=== PATIENT | female | born 1955 | race Caucasian/White ===

== ENCOUNTER 2017-03-20 13:16 | Observation (INO) ==
[2017-03-20] MEDS ORDERED: ASPIRIN ONE (13:22)
[2017-03-20] MEDS ORDERED: ASPIRIN PO STA (13:24)
[2017-03-20 13:31] LABS: MANUAL DIFF NEEDED? NO
[2017-03-20 13:37] LABS: EOS# 0.26 X1000 (0.0-0.7); EOS% 2.9 % (0.0-10.0); HEMATOCRIT 45.5 % (37.0-47.0); HEMOGLOBIN 16.1 g/dL (12.0-16.0); IMM GRAN# 0.02 X1000 (0.0-0.04); IMM GRAN% 0.2 % (0.0-0.5); LYMPH# 3.71 X1000 (1.2-3.4); MCH 31.9 PG (27-31); MCHC 35.4 g/dL (33-37); MCV 90.3 FL (81-99); MONO# 0.71 X1000 (0.11-0.59); MPV 11.4 FL (7.4-10.4); NEUT% 45.9 % (42.2-75.2); PLT 296 X1000 (130-400); RBC 5.04 XMIL (4.2-5.4)
[2017-03-20 13:44] LABS: INR 0.94; PROTIME 9.8 Seconds (9.2-11.7); PTT 23.1 Seconds (22.0-36.0)
--- NOTE | 2017-03-20 13:46 | Diag Imaging Result Doc PS360 ---
EXAM: CHEST-PORTABLE INDICATION: CP TECHNIQUE: One view COMPARISON: 11/21/2016 FINDINGS: There is evidence of prior granulomatous disease, stable. The lungs are grossly clear, otherwise. There is no discrete pleural fluid collection or pneumothorax. There are stable CABG changes. The cardiomediastinal silhouette and central vasculature are grossly unremarkable, otherwise. IMPRESSION: No evidence of acute pathology by plain radiograph. Electronically signed by Hansel Malcolm 03/20/2017 1:44 PM
[2017-03-20] MEDS ORDERED: ZOFRAN ONE (13:57)
[2017-03-20 14:11] LABS: AGAP 18; ALBUMIN 4.5 g/dL (3.5-5.0); ALKALINE PHOSPHATASE 92 U/L (32-104); BUN 15 mg/dL (8-22); CALCIUM 9.3 mg/dL (8.8-10.2); CHLORIDE 99 mmol/L (98-107); CK PROFILE 60 U/L (24-173); COSMO 282; GOT 30 U/L (10-30); GPT 36 U/L (10-36); MAGNESIUM 2.1 mg/dL (1.5-2.7); POTASSIUM 4.6 mmol/L (3.5-5.1); SODIUM 139 mmol/L (136-145); TCO2 22 mmol/L (25-35); TOTAL BILIRUBIN 0.27 mg/dL (0.20-1.00); TOTAL PROTEIN 6.9 g/dL (6.3-8.3)
[2017-03-20] MEDS ORDERED: ZOFRAN IV ONE (14:30)
--- NOTE | 2017-03-20 14:32 | PROVIDER DOCUMENTATION ---
This chart was entered by Bob Chávez Scribe, acting as scribe for Aleida Celis MD. HPI-Chest Pain - General Chief Complaint: Chest Pain Stated Complaint: Near Syncope Time Seen by Provider: 03/20/17 13:17 Source: patient Allergies/Adverse Reactions: Patient Allergies Allergy/AdvReac Type Severity Reaction Status Date / Time Sulfa (Sulfonamide Allergy Mild ITCHING Verified 03/20/17 13:40 Antibiotics) adhesive Allergy RASH Verified 03/20/17 13:40 Home Medications: Home Medication List Medication Instructions Recorded Confirmed Last Taken Type Amlodipine Besylate [Norvasc] 5 mg PO DAILY #90 tablet 05/09/16 03/20/17 22:00 Rx Atorvastatin Calcium [Lipitor] 80 mg PO HS 05/09/16 03/20/17 03/19/17 22:00 History Carvedilol [Coreg] 12.5 mg PO BID 05/09/16 03/20/17 03/20/17 09:00 History Clopidogrel Bisulfate [Plavix] 75 mg PO DAILY 05/09/16 03/20/17 03/20/17 09:00 History LISINOpril [Prinivil] 20 mg PO HS 05/09/16 03/20/17 03/20/17 09:00 History Dapagliflozin Propanediol [Farxiga] 10 mg PO DAILY 11/21/16 03/20/17 03/20/17 09 :00 History Metformin E.r. [Glucophage Xr] 1,000 mg PO DAILY 11/21/16 03/20/17 03/20/17 09: 00 History Morris-3 Acid Ethyl Esters [Lovaza] 2 cap PO BID 11/21/16 03/20/17 03/20/17 09: 00 History Isosorbide Mononitrate E.r. [Imdur] 60 mg PO DAILY #30 11/22/16 03/20/17 09:00 Rx - History of Present Illness-CP Nature of Presenting Problem: 61 yo F presents to the ER via EMS with complaint of of wanting to pass out at work. PT all of a sudden felt bad and broke out in sweats and became SOB and had CP. PT was given nitro by EMS. Location: reports: substernal Chest Pain Radiation: reports: no radiation Severity in ED: mild Onset/Duration: 24 hours ago Timing: still present Associated Symptoms: reports: diaphoresis, weakness Nitro Today/Relief: provided by EMS Review of Systems - Adult - REVIEW OF SYSTEMS - ADULT Constitutional: denies: chills, fever Cardiovascular: reports: chest pain. denies: palpitations Respiratory: reports: shortness of breath. denies: cough Gastrointestinal: denies: abdominal pain, nausea, vomiting All Other Systems: Reviewed and Negative Past History - Adult - PAST MEDICAL HISTORY-ADULT Review of Records: reports: Old Records Reviewed, Nursing Assessment Review, Medications Reviewed, Social history reviewed & non-contributory. Cardiovascular: reports: CAD, HTN, hyperlipidemia Endocrine/Immune: reports: Diabetes Other Conditions: reports: other cancer - PRIOR SURGERIES/PROCEDURES Surgical/Procedure History: reports: CABG (2005), hysterectomy, other (3 cyst removal, bunion removal, skin cancer removal lower lid rt eye) - PRIOR HOSPITALIZATIONS Prior Hospitalizations: reports: for similar symptoms - IMMUNIZATION STATUS Childhood Immunizations: UTD Flu Vaccine: See Nurse Assessment - FAMILY HISTORY Family History: reviewed, not pertinent Physical Exam-General - PHYSICAL EXAM-ADULT Initial Vital Signs Reviewed: Yes - CONSTITUTIONAL General Appearance: appears well, alert, no apparent distress - RESPIRATORY Respiratory: chest non-tender, lungs clear, normal breath sounds - CARDIOVASCULAR Cardiovascular: normal peripheral pulses, regular rate, rhythm - GASTROINTESTINAL (ABDOMEN) Abdominal Exam: normal bowel sounds, non tender, soft - MUSCULOSKELETAL Extremity: normal range of motion, non-tender, normal gait - SKIN Integumentary: normal color, normal turgor, warm/dry Progress - PLAN OF CARE/RESULTS Progress/Plan/Lab Results: Vital Signs - 8 hr 03/20/17 13:23 03/20/17 13:49 Temperature 97.6 F Pulse Rate 66 65 Respiratory Rate 18 11 L Blood Pressure 95/70 93/59 O2 Sat by Pulse Oximetry 97 99 Laboratory Results - last 24 hr 03/20/17 03/20/17 03/20/17 13:10 13:10 13:10 WBC 8.84 RBC 5.04 Hgb 16.1 H Hct 45.5 MCV 90.3 MCH 31.9 H MCHC 35.4 RDW Std Deviation 12.0 Plt Count 296 MPV 11.4 H Immature Gran % (Auto) 0.2 Neut % (Auto) 45.9 Lymph % (Auto) 42.0 Riley % (Auto) 8.0 Eos % (Auto) 2.9 Baso % (Auto) 1.0 H Immature Gran # (Auto) 0.02 Neut # (Auto) 4.05 Lymph # (Auto) 3.71 H Riley # (Auto) 0.71 H Eos # (Auto) 0.26 Baso # (Auto) 0.09 PT INR PTT (Actin FS) Sodium 139 Potassium 4.6 Chloride 99 Carbon Dioxide 22 L Anion Gap 18 BUN 15 Creatinine 0.7 Estimated GFR/1.73 m2 > 60 BUN/Creatinine Ratio 21 Glucose 161 H Calculated Osmolality 282 Calcium 9.3 Magnesium 2.1 Total Bilirubin 0.27 AST 30 ALT 36 Alkaline Phosphatase 92 Creatine Kinase 60 Troponin T [id number] Pept 251 H Total Protein 6.9 Albumin 4.5 Globulin 2.4 Albumin/Globulin Ratio 1.9 03/20/17 03/20/17 13:10 13:10 WBC RBC Hgb Hct MCV MCH MCHC RDW Std Deviation Plt Count MPV Immature Gran % (Auto) Neut % (Auto) Lymph % (Auto) Riley % (Auto) Eos % (Auto) Baso % (Auto) Immature Gran # (Auto) Neut # (Auto) Lymph # (Auto) Riley # (Auto) Eos # (Auto) Baso # (Auto) PT 9.8 INR 0.94 PTT (Actin FS) 23.1 Sodium Potassium Chloride Carbon Dioxide Anion Gap BUN Creatinine Estimated GFR/1.73 m2 BUN/Creatinine Ratio Glucose Calculated Osmolality Calcium Magnesium Total Bilirubin AST ALT Alkaline Phosphatase Creatine Kinase Troponin T < 0.010 Wnf-[id number]-Qayqxzanjci Pept Total Protein Albumin Globulin Albumin/Globulin Ratio Orders Category Date Time Status Cardiac Monitoring DIRECTED Care 03/20/17 13:24 Active Saline Loc NOW Care 03/20/17 13:24 Active CHEST-PORTABLE [RAD] Stat Exams 03/20/17 13:24 Completed CBC WITH ELECTRONIC DIFF [HEME] Stat Lab 03/20/17 13:10 Completed CK PROFILE [SP CHEM] Stat Lab 03/20/17 13:10 Completed COMPREHENSIVE METABOLIC PANEL [CHEM] Stat Lab 03/20/17 13:10 Completed MAGNESIUM [CHEM] Stat Lab 03/20/17 13:10 Completed PRO B-NATRIURETIC PEPTIDE Stat Lab 03/20/17 13:10 Completed PROTIME WITH INR [COAG] Stat Lab 03/20/17 13:10 Completed PTT [COAG] Stat Lab 03/20/17 13:10 Completed TROPONIN T Stat Lab 03/20/17 13:10 Completed Aspirin Med 03/20/17 13:22 Discontinued 325 mg .ROUTE .STK-MED ONE Aspirin Med 03/20/17 13:24 Discontinued 325 mg PO STAT STA Ondansetron [Zofran] Med 03/20/17 13:57 Discontinued 4 mg .ROUTE .STK-MED ONE Ondansetron [Zofran] Med 03/20/17 14:30 Discontinued 4 mg IV NOW ONE Result Diagrams: 03/20/17 13:10 03/20/17 13:10 - EKG 1 Time of EKG reading by physician:: 13:54 EKG Read and Signed by:: Aleida Celis EKG Interpretation (*Must complete 3 of following elements*): Abnormal Rate: 69 Rhythm: NSR [place]: normal [place] Interval: normal ST Wave: normal Prior EKG Comparison: unchanged from prior Comments: non-specific AVF - XRAY 1 XRAY Study: Chest Impression: See EMR Report - CONSULTS/PCP/HOSPITALIST Notification #1 *Consult/PCP/Hospitalist*: Dr Daniel Time Discussed: 14:32 Consult Disposition: Admit Departure - Departure Date of Disposition Decision: 03/20/17 Time of Disposition Decision: 14:32 DIAGNOSIS: Unstable angina, Chest pain, rule out acute myocardial infarction Disposition: ADMITTED INPATIENT 09 Certified Medical Emergency: Emergent Condition: Fair Referrals and Follow-Ups: Josafat Hamlin DO [Primary Care Provider] - - Critical Care Note This patient required my direct & personal management of CC.: No This chart was documented by the indicated scribe, (Bob Chávez Scribe) and accurately reflects the services I performed and decisions made by me, Aleida Celis MD, as attested by the provider's signature.
[2017-03-20] MEDS ORDERED: TYLENOL PO PRN ×2 (15:16→21:13)
[2017-03-20] MEDS ORDERED: ZOFRAN IV PRN ×2 (15:16→21:13)
--- NOTE | 2017-03-20 15:47 | EKG Report ---
Test Performed on : 03/20/2017 1:52:41 PM Test Reason : CP Blood Pressure : / mmHG Vent. Rate : 067 BPM Atrial Rate : 067 BPM P-R Int : 148 ms QRS Dur : 090 ms QT Int : 470 ms P-R-T Axes : -15 076 086 degrees QTc Int : 496 ms Normal sinus rhythm. Prolonged QT Abnormal ECG When compared with ECG of 21-NOV-2016 11:19, No significant change was found Unconfirmed Result
--- NOTE | 2017-03-20 15:47 | EKG Report ---
Test Performed on : 03/20/2017 1:18:56 PM Test Reason : chest pain Blood Pressure : / mmHG Vent. Rate : 069 BPM Atrial Rate : 069 BPM P-R Int : 144 ms QRS Dur : 088 ms QT Int : 470 ms P-R-T Axes : -17 074 077 degrees QTc Int : 503 ms Normal sinus rhythm. Prolonged QT Abnormal ECG No previous ECGs available Unconfirmed Result
[2017-03-20] MEDS ORDERED: HEPARIN 25,000 UNITS/D5W 25,000 UNIT/250 ML IV.SOLN IV SCH ×2 (16:00→23:45)
--- NOTE | 2017-03-20 16:22 | HISTORY AND PHYSICAL ---
CHIEF COMPLAINT: Dizziness and substernal chest pain. HISTORY OF PRESENT ILLNESS: 61-year-old female with a past medical history of coronary artery disease status post CABG, hypertension, diabetes, hyperlipidemia, degenerative joint disease and depression came to the emergency department with the chief complaint of dizziness, nausea and chest pain. As per the patient everything started 15 minutes before lunch, when she presented with severe dizziness, sweating, fever and severe dizziness and nausea. 50 minutes after that she started presenting pressure like chest pain, nonradiated, 6 to 8/10. EMS saw this patient and they use nitroglycerine and after the treatment the chest pain went away. At the moment of my physical this patient was not on chest pain, vital signs are stable with nonspecific ST changes in the EKG and troponins negative so far. Cardiology Department has been consulted. PAST MEDICAL HISTORY: Coronary artery disease, systemic hypertension, type 2 diabetes, hyperlipidemia, osteoarthritis and depression. PAST SURGICAL HISTORY: Status post CABG with saphenous vein graft to obtuse marginal. FAMILY HISTORY: Positive for coronary artery disease and CT in both of her parents and 2 brothers. SOCIAL HISTORY: She is . Currently she smokes 1 pack of cigarettes daily for the past 18 years. She denies alcohol or drugs. ALLERGIES: As per reports she has been allergic to adhesives and sulfa medication. HOME MEDICATIONS: She was discharged in November of this year with the following medications, and actually this is the medication that she is that she is on at this moment. Lipitor 80. Plavix 75. Coreg 12.5 b.i.d. Lisinopril 20 daily. Farxiga 10 daily. Metformin 1 g daily. Lovaza 2 g b.i.d. Norvasc 5 mg p.o. daily. Imdur was increased to 60 p.o. daily. Vital signs: Pulse 65, respiratory rate 11, blood pressure 93/59, oxygen saturation 99 on 2 L of nasal cannula. HEENT: Head normocephalic. No trauma. PERRLA. Neck: Supple. No JVD. No masses. Central trachea. Chest: Clear to auscultation. No wheezing. No rales. Cardiovascular: RRR. No murmurs. Abdomen: Soft, nontender, nondistended. No hepatosplenomegaly. Extremities: No edema. No clubbing. No cyanosis. Neurological: The patient is alert and oriented x3. No focal neurological deficits. LABORATORY: WBC 8.8, hemoglobin 16.1, hematocrit 45.5, platelets 296,000. Sodium 139, potassium 4.6, chloride 99, bicarbonate 22, BUN 15, creatinine 0.7, glucose 161, calcium 9.3. Troponin less than 0.010. ProBNP 251. REVIEW OF SYSTEMS: All the 14 points of review of systems were reviewed, and all of them negative except as per HPI. ASSESSMENT AND PLAN: 1. Chest pain, this patient has been having this kind of chest pain before. In November 2016 this patient had a myocardial perfusion scan/stress test done that showed normal myocardial function and ventricular ejection fraction of 69%. Wall motion was normal. But given her past medical history, current history of smoking, we will keep this patient in the CIC unit and we will consult Cardiology Department for evaluation. I will also put this patient on a liquid diet and I will wait for recommendations of Cardiology Department. 2. Hypertension. Actually at this moment the systolic blood pressure is around 90. Blood pressure medication has been held. 3. Type 2 diabetes. I will do pattern of blood sugar and sliding scale insulin for now. 4. Tobacco abuse. This patient has been highly advised against tobacco abuse. I will continue with daily cessation education. 5. History of coronary artery disease status post coronary artery bypass graft. Aware. 6. Depression. Will monitor. cc: Zenon Levin MD MTDD
[2017-03-20 16:57] LABS: URINE CULTURE NEEDED? NO; URINE MICRO REVIEW NEEDED? NO; URINE SOURCE CATH
[2017-03-20 17:01] LABS: BILIRUBIN URINE NEGATIVE (NEGATIVE); BLOOD URINE NEGATIVE (NEGATIVE); COLOR YELLOW; GLUCOSE URINE >1000 mg/dL (NEGATIVE); LEUKOCYTES URINE NEGATIVE (NEGATIVE); NITRITE URINE NEGATIVE (NEGATIVE); PROTEIN URINE NEGATIVE (NEGATIVE); SP GRAVITY URINE 1.025; TURBIDITY URINE CLEAR (CLEAR); UR EPITHELIAL CELLS <10 /HPF (<10); URINE BACTERIA NEGATIVE /HPF; URINE RBC <10 /HPF (<10); URINE WBC <10 /HPF (<10); UROBILINOGEN URINE NORMAL (NORMAL)
[2017-03-20] MEDS ORDERED: HEPARIN IV ONE ×2 (17:16→23:39)
[2017-03-20] MEDS: LIPITOR PO SCH (20:30)
[2017-03-20] MEDS: COREG PO SCH (20:31)
[2017-03-20] MEDS ORDERED: HEPARIN SUBQ SCH (21:00)
[2017-03-20] MEDS ORDERED: KLOR-CON PO PRN ×3 (21:13)
[2017-03-20] MEDS ORDERED: NITROGLYCERIN SL PRN (21:13)
[2017-03-20] MEDS ORDERED: DULCOLAX PR PRN (21:13)
[2017-03-20] MEDS ORDERED: MAGNESIUM SULFATE 2 GM in STERILE WATER INJ. 50 ML IV PRN ×4 (21:13)
[2017-03-20] MEDS ORDERED: MILK OF MAGNESIA PO PRN (21:13)
[2017-03-20] MEDS ORDERED: CEPACOL SORE THROAT LOZENGE MT PRN (21:13)
[2017-03-20] MEDS ORDERED: RESTORIL PO PRN (21:13)
[2017-03-20] MEDS ORDERED: MAGNESIUM SULFATE 3 GM in NS 100 ML IV PRN (21:13)
[2017-03-20] MEDS ORDERED: PERCOCET-5 PO PRN (21:13)
[2017-03-20] MEDS: XANAX PO PRN (22:07)
--- NOTE | 2017-03-21 04:45 | CONSULTATION ---
DATE OF CONSULTATION: 03/20/2017 CHIEF COMPLAINT: Chest pain. REQUESTING: Hospitalist Service. HISTORY: Ms. Ferrer is a 61-year-old female who is known to Dr. Zeyad Cornejo. 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 Then she felt lightheaded. She started to sweat. She notified her coworkers than something was not right and within 20 minutes they called 911 and they brought her to the hospital. In the ambulance as she was riding, she started to feel pain in the left anterior chest, sharp, of mild severity, associated with some shortness of breath. Upon arrival, they did an EKG that showed similar to previous EKGs from November of 2016. They have admitted her to the hospital for further testing. They have done a total of 3 EKGs and all of them look about the same. She has had at least one troponin level which is negative. She says that compared to the episode of chest pain that she had back in November, this one was more localized to the left anterior chest. The previous one was in the center of the chest and more severe. She is at this time not having anymore pain. I am seeing her at 5:45 p.m. EKG has just been done and it shows a similar pattern which is sinus bradycardia with a pseudo ST elevation in leads II, III, and F, with reciprocal changes in I and AVL. However, the EKG is similar to the one from November. PAST MEDICAL HISTORY: The patient's past history is positive for coronary heart disease. She has had previous coronary bypass surgery. She has had previous stress test recently that was negative. Last heart cath was done in December of 2013 that showed 20% left main, mild irregularities in the LAD, mild irregularities in the marginal. The right coronary artery showed mild irregularities. She had one vein graft that was occluded. She has an occluded (atretic) mammary artery to LAD. The patient has a history of hypertension and hyperlipidemia. She has arthritis. PAST SURGICAL HISTORY: She had hysterectomy, oophorectomy, and the coronary bypass procedure that was done I believe in 2008. The patient has not seen Dr. Cornejo since last visit in June of 2015. She has been under the care of Dr. Josafat Hamlin who is her primary doctor. HOME MEDICATIONS: Her home medications at the time of the present hospital admission included: 1. Lovaza 2 capsules twice a day. 2. Metformin 1000 mg daily. 3. Prinivil 20 mg at bedtime. 4. Isosorbide mononitrate 60 mg daily. 5. Farxiga 10 mg daily. 6. Plavix 75 mg daily. 7. Coreg 12.5 twice a day. 8. Atorvastatin 80 daily. 9. Amlodipine 5 mg daily. ALLERGIES: She is allergic to sulfa drugs and adhesive tape. REVIEW OF SYSTEMS: The patient has no recurrent chest pains since November. She is active. She has no other ongoing issues. SOCIAL HISTORY: She is , has 3 grownup children. She works at [employer]. She smokes a pack of cigarettes a day. PHYSICAL EXAMINATION: Vital signs: Blood pressure is 117/64, temperature 97.8 , pulse 64, respirations 16. General: The patient is awake, alert, oriented, in no distress. HEENT: Normal. Chest: Clear to auscultation and percussion. Cardiac: Heart sounds regular and rhythmic. She has a sternotomy scar which is well healed. No rubs, gallops or murmur noted. Abdomen: Nontender, soft. No masses. No hepatomegaly. Extremities: Show good pulses. No peripheral edema. Neurologic: She moves four extremities, follows commands. LABORATORY DATA: Sodium 139, potassium 4.6, BUN 15, creatinine 0.7. Pro BNP is 251. Hemoglobin 16.1, hematocrit 45.5. A chest x-ray was done in the emergency room and it shows no evidence of any pathology. IMPRESSION: 1. Patient presenting with atypical chest discomfort. EKG is unchanged. There are no acute ST elevation changes at this time. Her pain is mild. 2. History of severe coronary heart disease, previous bypass with occluded grafts both MICHEL to LAD and SVG to OM. 3. The patient is a tobacco user. 4. Hyperlipidemia. 5. History of hypertension. RECOMMENDATIONS: 1. We will put the patient on IV heparin. 2. We will check serial cardiac enzymes and EKGs. 3. We will consider obtaining a stress test in the morning. 4. Further advice will be forthcoming. Thank you for the opportunity to participate in her evaluation. cc: MD EFREN Ward
--- NOTE | 2017-03-21 05:35 | EKG Report ---
Test Performed on : 03/20/2017 5:41:59 PM Test Reason : chest pain Blood Pressure : / mmHG Vent. Rate : 057 BPM Atrial Rate : 057 BPM P-R Int : 142 ms QRS Dur : 088 ms QT Int : 480 ms P-R-T Axes : -18 073 099 degrees QTc Int : 467 ms Sinus bradycardia. Otherwise normal ECG When compared with ECG of 20-MAR-2017 13:52, (Unconfirmed) No significant change was found Confirmed by Cristian MOSQUERA, Warren Mckeon ([id number]) on 03/23/2017 9:10:25 AM
[2017-03-21 05:44] LABS: MANUAL DIFF NEEDED? NO
[2017-03-21 05:56] LABS: BASO% 0.5 % (0.0-0.8); EOS# 0.25 X1000 (0.0-0.7); HEMOGLOBIN 14.6 g/dL (12.0-16.0); LYMPH# 3.38 X1000 (1.2-3.4); LYMPH% 40.5 % (20.5-51.1); MCH 31.9 PG (27-31); MCHC 34.8 g/dL (33-37); MCV 91.7 FL (81-99); MONO# 0.58 X1000 (0.11-0.59); MPV 11.3 FL (7.4-10.4); PLT 216 X1000 (130-400); RBC 4.58 XMIL (4.2-5.4)
[2017-03-21 06:18] LABS: AGAP 12; BUN 14 mg/dL (8-22); CALCIUM 8.5 mg/dL (8.8-10.2); CHLORIDE 103 mmol/L (98-107); COSMO 282; MAGNESIUM 1.9 mg/dL (1.5-2.7); POTASSIUM 3.8 mmol/L (3.5-5.1); SODIUM 140 mmol/L (136-145); TCO2 25 mmol/L (25-35)
[2017-03-21] MEDS ORDERED: HEPARIN IV ONE (06:45)
[2017-03-21] MEDS ORDERED: HEPARIN 25,000 UNITS/D5W 25,000 UNIT/250 ML IV.SOLN IV SCH (06:46)
--- NOTE | 2017-03-21 07:05 | EKG Report ---
Test Performed on : 03/21/2017 06:32:57 AM Test Reason : chest pain Blood Pressure : / mmHG Vent. Rate : 064 BPM Atrial Rate : 064 BPM P-R Int : 150 ms QRS Dur : 092 ms QT Int : 468 ms P-R-T Axes : -17 066 085 degrees QTc Int : 482 ms Normal sinus rhythm. Prolonged QT Abnormal ECG When compared with ECG of 20-MAR-2017 17:41, (Unconfirmed) No significant change was found Confirmed by Cristian MOSQUERA, Warren Mckeon ([id number]) on 03/23/2017 9:11:23 AM
[2017-03-21] MEDS ORDERED: LEXISCAN ONE (09:12)
[2017-03-21] MEDS ORDERED: AMINOPHYLLINE ONE (09:22)
[2017-03-21] MEDS: PLAVIX PO SCH (11:31)
[2017-03-21] MEDS: COREG PO SCH ×2 (11:31→20:10)
[2017-03-21] MEDS: XANAX PO PRN ×2 (11:35→20:10)
--- NOTE | 2017-03-21 13:52 | PROGRESS NOTE ---
DATE: 03/21/2017 SUBJECTIVE: This patient states that she is feeling better. She just had a stress test done pending results. No acute events overnight. OBJECTIVE: Vital Signs: Temperature 98 degrees, pulse 65, respiratory rate 16, blood pressure 148/96, oxygen saturation 98 on room air. HEENT: Head normocephalic. No trauma. PERRLA. Neck: Supple. No JVD. No masses. Central trachea. Chest: Clear to auscultation. No wheezing. No rales. Cardiovascular: RRR. Abdomen: Soft, nontender, nondistended. No hepatosplenomegaly. Extremities: No edema. No clubbing. No cyanosis. Neurological examination: The patient is alert and oriented x3. No focal deficits. LABORATORY: WBC 8.3, hemoglobin 14.6, hematocrit 42, platelets 216. Sodium 140, potassium 3.8, chloride 103, bicarbonate 25, BUN 14, creatinine 0.5, glucose 132, calcium 8.5. ASSESSMENT AND PLAN: 1. Chest pain. This patient recently had a stress test done pending results. Cardiology Department is following this patient. She is not complaining of chest pain at this specific moment. 2. Hypertension. Blood pressure is controlled. Continue with the same management. 3. Type 2 diabetes. We will continue with sliding scale insulin and pattern of blood sugar for now. 4. Tobacco abuse. This patient has been highly advised against tobacco abuse. I will continue with daily cessation education. She is still smoking 1 pack a day. 5. History of coronary artery disease status post coronary artery bypass graft. Aware. 6. Depression. We will monitor. CRITICAL CARE TIME: 35 minutes. cc: Zenon Levin MD
--- NOTE | 2017-03-21 15:40 | ECHO REPORT ---
ORDER DATE: 03/20/2017 DATE OF STUDY: 03/20/2017. ECHOCARDIOGRAPHIC MEASUREMENTS: 1. Left ventricular end-diastolic diameter 4.3. 2. End-systolic diameter 2.8. 3. Posterior wall thickness 1.1. 4. Septal thickness 1.0. 5. Left atrium 3.7. 6. Aortic root 3.3 SUMMARY: 1. Adequate quality study. 2. Aortic valve is trileaflet and opens normally on 2-dimensional images. Mitral, tricuspid, and pulmonic valves are without structural abnormality with mild mitral regurgitation, trace tricuspid regurgitation and trace pulmonic insufficiency. The aortic root is normal size. 3. Normal left ventricular chamber size with upper normal wall thickness demonstrated. Estimated left ejection fraction appears to be at least 70%. No regional wall motion abnormalities are evident. Left atrium, right atrium, and right ventricle are normal in size with normal right ventricular systolic function. 4. No pericardial effusion. 5. Appearance of inferior vena cava suggests normal central venous pressure. CONCLUSIONS: 1. Mild mitral regurgitation. 2. Estimated left ejection fraction at least 70%. cc: MD Rhoda Landaverde PA
--- NOTE | 2017-03-21 18:11 | PROGRESS NOTE ---
DATE: 03/21/2017 CHIEF COMPLAINT: Chest pain. SUBJECTIVE: Ms. Ferrer states that her chest pain has improved. She has completed a stress test today that shows no significant ischemia. Her breathing is normal. Blood pressure has gone up some. OBJECTIVE: Vital signs: Blood pressure today is 148/96, temperature 98 degrees, pulse 65, respirations 16. General: The patient is awake, alert, oriented, in no distress. HEENT: Unremarkable. Chest: Clear to auscultation and percussion. Cardiac: Heart sounds regular and rhythmic. No gallop or murmur. Abdomen: Nontender. Soft. No masses. No hepatomegaly. Extremities: Show good pulses, no edema. Neurologic: Moves all four extremities. Cranial nerves are normal. LABORATORY DATA: White count is normal, hemoglobin is normal, platelet count is normal. Sodium 140, potassium 3.8, BUN and creatinine normal. Troponin has been checked 3 times, all of them negative. Pro BNP 251 pg/mL. Stress test, again, is normal. IMPRESSION: 1. Patient presenting with recurrent chest pain, possible angina pectoris (unstable). Stress test today shows no evidence of severe ischemia, and her EKG and troponin levels are all unchanged. 2. Previous double coronary bypass surgery with occluded vein graft to marginal branch and occluded mammary artery to LAD. 3. Persistent tobacco use. 4. History of hypertension. 5. History of hyperlipidemia. RECOMMENDATIONS: At this point in time we will go ahead and suggest to this patient to discontinue Imdur. That medication perhaps is not going to help much her particular situation and it may favor syncope. She had a near syncopal episode. I would also suggest to her to keep herself well hydrated because she is taking Farxiga which may cause some relative intravascular depletion. We will suggest to her to try nitroglycerin sublingual as needed for chest pains. I have instructed her to monitor her blood pressure twice daily for the next month and to come back to see Dr. Zeyad Cornejo in followup in about a month. Further intervention then will be decided. Thank you again for the opportunity to participate in her evaluation. cc: Félix Yusuf MD
--- NOTE | 2017-03-21 18:21 | Diag Imaging Result Document ---
PROCEDURE NAME: MYOCARDIAL PERF SCAN, STR/REST - 03/21/2017 STUDY: Rest-stress Lexiscan myocardial perfusion study. INDICATION: Chest pain, coronary heart disease, previous bypass. DESCRIPTION: The patient came into the [facility], received a rest injection of technetium 99 sestamibi 11.2 millicuries. Multiple tomographic views of the cardiac structure were obtained at rest. Subsequently the patient underwent infusion of Lexiscan per protocol, 0.4 mg. Following infusion, injected with technetium 99 sestamibi 34.3 millicuries. Multiple tomographic views of the cardiac structure were obtained following completion of the protocol. SUMMARY OF ELECTROCARDIOGRAPHIC PORTION OF STUDY: Resting ECG shows sinus rhythm, rate 62 beats per minute. Resting blood pressure 142/77. Resting ECG shows nonspecific ST elevation in Lead III, a tiny Q wave in Leads II, III, and F, and ST depression, downsloping ST 0.5 mm in Lead AVL. During infusion of Lexiscan, the heart rate increased to 93 beats per minute. Blood pressure went up to 172/80. The patient reported no chest pain, shortness of breath, or palpitations. The ECG showed some exaggeration of the baseline abnormality with some more pronounced ST elevation in Lead III and ST depression in Lead AVL. This change improved late during the recovery phase after administration of aminophylline 125 mg. IMPRESSION: In summary, the electrocardiographic response to infusion of Lexiscan is deemed to be abnormal, however, the resting ECG was abnormal. Whether or not this represents an ischemic response is uncertain. The patient reported no symptoms. SUMMARY OF MYOCARDIAL PERFUSION PORTION OF STUDY: Poststress tomographic views of the left ventricle showed essentially normal myocardial perfusion. There is no convincing evidence of any postexercise defect. The rest images show normal perfusion. Polar plots reveal the same. There is really no convincing evidence of neither inducible ischemia nor myocardial scar. Gated SPECT shows normal left ventricular systolic function. Ejection fraction is estimated at 63% with normal ventricular volumes. No wall motion abnormality. Lung-heart ratio is normal. TID is mildly elevated at 1.13. The significance of that is unclear. IMPRESSION: In summary, this study shows: 1. Abnormal resting ECG with exaggeration of baseline abnormality during infusion of Lexiscan. 2. Essentially normal poststress myocardial perfusion scan. There is no convincing scintigraphic evidence of pharmacologically induced myocardial ischemia. There is a questionable apical anterior defect that is very trivial and it is more than likely related to shifting breast attenuation artifact. 3. There is normal left ventricular systolic function. Ejection fraction estimated at 63% with normal ventricular volumes. No wall motion abnormality. This study probably represents a low risk for ischemic events. Clinical correlation recommended. cc: Félix Yusuf MD
[2017-03-21] MEDS: LIPITOR PO SCH (20:10)
[2017-03-22 05:14] LABS: MANUAL DIFF NEEDED? NO
[2017-03-22 05:18] LABS: BASO% 1.4 % (0.0-0.8); EOS# 0.25 X1000 (0.0-0.7); HEMATOCRIT 42.4 % (37.0-47.0); HEMOGLOBIN 15.1 g/dL (12.0-16.0); LYMPH# 3.24 X1000 (1.2-3.4); LYMPH% 51.4 % (20.5-51.1); MCH 32.3 PG (27-31); MCHC 35.6 g/dL (33-37); MCV 90.6 FL (81-99); MONO# 0.63 X1000 (0.11-0.59); NEUT% 33.2 % (42.2-75.2); PLT 237 X1000 (130-400); RBC 4.68 XMIL (4.2-5.4)
[2017-03-22 05:51] LABS: AGAP 13; BUN 16 mg/dL (8-22); CALCIUM 8.7 mg/dL (8.8-10.2); CHLORIDE 99 mmol/L (98-107); COSMO 278; SODIUM 137 mmol/L (136-145); TCO2 25 mmol/L (25-35)
[2017-03-22] MEDS: PLAVIX PO SCH (08:07)
[2017-03-22] MEDS: COREG PO SCH (08:07)
[2017-03-22] MEDS ORDERED: NORVASC PO SCH (09:00)
[2017-03-22 11:57] VITALS: BP 122/58
--- NOTE | 2017-03-22 15:40 | DISCHARGE SUMMARY ---
ADMISSION DATE: 03/20/2017 DISCHARGE DATE: 03/22/2017 CONSULTATIONS: Félix Yusuf MD with Cardiology. PERTINENT PROCEDURES: 1. Echocardiogram showed an EF of 70% with mild mitral regurgitation. 2. Myocardial perfusion scan was abnormal resting. ECG with exaggeration of baseline abnormality during infusion of Lexiscan, essentially normal. 3. Post-stress myocardial perfusion scan with no evidence of induced myocardial ischemia with an EF of 63% with no wall motion abnormality. DISCHARGE DIAGNOSES: 1. Chest pain with normal stress test, has resolved. 2. Hypertension. Continue blood pressure management. 3. Type 2 diabetes. Continue with Farxiga, however, patient will need to continue to stay well- hydrated as this medication may cause dehydration. 4. Continued tobacco abuse. Patient has been educated daily against smoking cessation as well as the means to quit. Still smokes 1 pack of cigarettes per day. 5. Coronary artery disease status post coronary artery bypass graft. Aware. 6. Depression. Stable. 7. Recurrent chest pain with possible unstable angina. Negative stress test. Her EKG and troponin levels are all negative. Her Imdur was discontinued by Cardiology. HOSPITAL COURSE: Ms. Ferrer is a 61-year-old female with a past medical history of coronary artery disease status post CABG, hypertension, diabetes mellitus, hyperlipidemia, degenerative joint disease, depression came to the ED with chief complaint of dizziness, nausea and chest pain. All her symptoms started 15 minutes before lunch. She presented with severe dizziness, sweating, fever and nausea. 15 minutes after that she started having pressure-like chest pain that was nonradiating. EMS gave the patient nitroglycerin and after the treatment her chest pain went away. Her vital signs are stable. She had nonspecific ST changes on her EKG and negative troponin. Cardiology was consulted. The patient underwent an echocardiogram that showed mild mitral regurgitation as well as an EF of 70%. She had a normal resting stress test. Again EKG and troponins were all negative. Dr. Yusuf suggested that the patient's Imdur be discontinued and to keep herself well-hydrated secondary to the use of taking Farxiga which can cause intravascular depletion and suggested to try nitroglycerin sublingual as needed for chest pain, monitor her blood pressures twice daily for a month, and come back to see Dr. Zeyad Cornejo for a followup and further intervention will be decided at that time. Ms. Ferrer is chest-pain free today. She is appropriate for discharge. VITAL SIGNS: Temperature is 98.1 degrees, heart rate 56, respirations 18, blood pressure 122/58, O2 is 95% on room air. DISCHARGE DIET: Healthy heart. DISCHARGE MEDICATIONS: 1. Tylenol 650 mg p.o. q.4-6 hours p.r.n. 2. Xanax 0.25 mg p.o. q.12 hours p.r.n.. 3. Lipitor 80 mg p.o. at bedtime. 4. Cepacol sore throat lozenges 1 each p.r.n. 5. Coreg 12.5 mg p.o. b.i.d. 6. Plavix 75 mg p.o. daily. 7. Farxiga 10 mg p.o. daily. 8. Prinivil 20 mg p.o. at bedtime. 9. Glucophage XR 1000 mg p.o. daily. 10. Nitroglycerin 0.4 mg sublingual q.5 minutes p.r.n. for chest pain. 11. Lovaza 2 caps p.o. b.i.d. FOLLOWUP: The patient is being discharged home with instructions to take her sublingual nitroglycerin for her chest pain, monitor her blood pressures b.i.d. and report them back to Dr. Zeyad Cornejo in 1 month, and they will decide on further intervention from there. The patient can return to the ED for any worsening of symptoms. DISCHARGE TIME: 30 minutes. Dictated by HUMBERTO Espinoza for Zenon Levin MD cc: MD Josafat Lux DO MTDD
== END 2017-03-22 14:51 | disposition home or self-care (01) ==
LOC: SUPCPDRO → ED 13:16 → 3S 13:17 → INTOOBSV 13:17 → 3S 03-21 12:28
PROVIDERS: ATTEND Internal Medicine